=== PATIENT | male | born 1940 | race Caucasian/White ===

== ENCOUNTER → 2024-04-01 | Outpatient (CLI) | payer MEDICARE, SELFPAY ==
[2024-04-01 11:04] LABS: Absolute Lymphocyte Count 1.03 X10^3/uL (0.83-4.51); Absolute Neutrophil Count 5.1 X10^3/uL (2.0-7.7); Basophil# 0.02 X10^3/uL; Basophil% 0.3 % (0-1); Eosinophil# 0.06 X10^3/uL; Eosinophils% 0.9 % (0-5); Hematocrit 34.9 % (40-54); Hemoglobin 11.4 g/dL (13.0-16.5); Lymphocyte # 1.03 X10^3/ul (0.83-4.51); Lymphocyte % 15.1 % (19-41); Mean Corp Hgb Conc 32.7 g/dL (32-36); Mean Corpuscular Hgb 29.1 pg (27.0-32.0); Mean Platelet Vol. 9.9 fl (6.2-12.0); Monocyte# 0.63 X10^3/uL; Monocyte% 9.2 % (0-10); NRBC Flagged by Analyzer 0 % (0-5); Neutrophil # 5.06 X10^3/uL (2.7-7.7); Neutrophil % 74.1 % (47-70); Platelet Count 189 K/mm3 (150-450); RBC Distribution Width CV 19.7 % (11.6-14.6); RBC Distribution Width SD 64.2 fl (35.1-43.9); Red Blood Count 3.92 M/mm3 (4.6-6.2); White Blood Count 6.8 K/mm3 (4.4-11.0)
== END | disposition home or self-care (01) ==
PROVIDERS: PCP Student in an Organized Health Care Education/Training Program; Referring Provider Student in an Organized Health Care Education/Training Program; Visit Provider Student in an Organized Health Care Education/Training Program
DX: D64.9 Anemia, unspecified (principal); K92.1 Melena
CPT/HCPCS: 36415; 85025

== ENCOUNTER 2024-06-03 13:03 | Day surgery (SDC) | payer MEDICARE, SELFPAY ==
--- NOTE | 2024-05-31 16:15 | PAT.ANESEVAL ---
Pre-Assessment Diagnosis/Proposed Procedure Planned Operative Procedure(s): CSCOPE/EGD Anesthesia History Anesthesia History - mosaic floor layer: Anesthesia History - mosaic floor layer Hx Hospitalization Yes 05/31/24 14:10 Any Problems With Anesthesia No 05/31/24 14:10 Cholinesterase deficiency No 05/31/24 14:10 You/Your Family Experience No 05/31/24 14:10 fever (hyperthermia) with Relationship Recent Exposure to Contagious Disease Does patient have nerve No 05/31/24 14:10 stimulator Patient instructed to have device shut off --Does patient have Pacemaker or ICD? When Was Last Pacemaker Check QUESTION #4 FULL TEXT: You/Your Family Experience fever (hyperthermia) with Anesthesia Last Oral Intake Last Oral intake: Last Oral Intake NPO since Meds taken in AM with sips of water? Meds patient instructed to take am of surgery PONV PONV - mosaic floor layer: PONV - mosaic floor layer Female No 05/31/24 14:10 HX of Motion Sickness No 05/31/24 14:10 HX of N/V After Surgery No 05/31/24 14:10 Non-Smoker No 05/31/24 14:10 Duration of Surgery greater No 05/31/24 14:10 than 60 minutes Number of Risk Factors PONV Score Respiratory Assessment Respiratory Assessment - mosaic floor layer: Respiratory Tract Infection Hx - mosaic floor layer Hx Respiratory Tract Infection No 05/31/24 14:10 STOP Sleep Apnea STOP Sleep Apnea - mosaic floor layer: STOP Sleep Apnea - mosaic floor layer Hx Hypertension Yes: CONTROLLED WITH MED 05/31/24 14:10 Hx Sleep Apnea No 05/31/24 14:10 CPAP BIPAP Do you snore loudly (louder No 05/31/24 14:10 than talking or can be heard Do you often feel tired/ No 05/31/24 14:10 fatigued/ sleepy during daytime? Has anyone observed you stop No 05/31/24 14:10 breathing during sleep? STOP Results Negative 05/31/24 14:10 QUESTION #5 FULL TEXT : Do you snore loudly (louder than talking or can be heard through closed doors)? 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 Specify any problems Hx of Preganancy in last 3 N/A 05/31/24 14:10 Months Nurse Filling Out Transfusion DSCHRIBER 05/31/24 14:10 & Questions: Date: 05/31/24 05/31/24 14:10 Time: 14:11 05/31/24 14:10 Patient unable to answer at this time (ie. confused, unrespo /Reproduction History /Reproductive History - mosaic floor layer: /Reproductive Hx- mosaic floor layer Hx Now No 05/31/24 14:10 Gestational Age (in weeks): EDC: Hx Hx Para Hx Section SAB No 05/31/24 14:10 PFSH Medical History (Updated 05/31/24 @ 14:19 by Regina Valdovinos) Loss of hearing Wears glasses Wears dentures Cancer Forgetfulness Alcohol use Ambulates with cane Bladder disease Anemia High cholesterol Back pain COPD (chronic obstructive pulmonary disease) Shortness of breath on exertion Smoker History of stress test History of echocardiogram Cardiology follow-up encounter Hypertension History of atrial fibrillation Home Medications ?Medication ?Instructions ?Recorded ?Last Taken ?Type apixaban 5 mg tablet (Eliquis) 5 mg PO BID 04/01/24 05/31/24 History cholecalciferol (vitamin D3) 125 125 mcg PO QDAY 04/01/24 Unknown History mcg (5,000 unit) capsule cyanocobalamin (vitamin B-12) 1,000 mcg PO QDAY 04/01/24 Unknown History 1,000 mcg capsule ferrous sulfate 137 mg (45 mg 137 mg PO QDAY 04/01/24 05/30/24 History iron) tablet,extended release metoprolol tartrate 25 mg tablet 25 mg PO QDAY 04/01/24 Unknown History simvastatin 20 mg tablet 20 mg PO QHS 04/01/24 Unknown History tamsulosin 0.4 mg capsule 0.4 mg PO QHS 04/01/24 Unknown History albuterol sulfate 90 mcg/actuation 1 inh inhalation Q4H PRN shortness 05/31/24 Unknown History aerosol inhaler of breath or wheezing amiodarone 200 mg tablet 200 mg PO DAILY 05/31/24 Unknown History fluticasone propionate 50 1 spray intranasal DAILY PRN nasal 05/31/24 Unknown History mcg/actuation nasal congestion spray,suspension Allergy/AdvReac Type Severity Reaction Status Date / Time No Known Allergies Allergy Verified 05/31/24 14:06 Surgical History (Updated 05/31/24 @ 14:19 by Regina Valdovinos) History of transurethral resection of bladder tumor (TURBT) Hx of colonoscopy Hx of melanoma excision Hx of repair of left rotator cuff Social History Smoking Status: Current every day smoker tobacco type: cigarettes Audit: Pertinent Findings Pertinent Findings EKG Perinent findings: May 14, 2023. Sinus bradycardia 53 bpm. Positive PSVC's Stress test pertinent findings: October 23, 2020. Negative for ischemia. Negative for infarct. Ejection fraction 53%. Echo (EF%) pertinent findings: May 16, 2022. Ejection fraction 55%. Right ventricular systolic pressure is 49 mmHg consistent with mild pulmonary hypertension. Aortic valve was not seen. Compared with echo of February 2022 the left ventricular function has improved. Consult pertinent findings: May 14, 2023. Dr. Giles. 1. Atrial tachycardia-EKG today with sinus at 53 bpm. 2. Hypertension-reasonable blood pressure today. Patient states lower at home he will monitor and report back. 3. History of benign PVCs-no clinical significance. 4. Mild COPD-no wheezing. He has chronic minimal dyspnea. Recommendation Anesthesia Recommendation Anesthesia recommendation: OPTIMIZED for anesthesia
[2024-06-03] VITALS (7 sets, daily range): BP systolic 101–133; BP diastolic 64–71; PULSE 63–70; RESP 16–18; TEMP 36.3–36.9; O2SAT 98–100; BMI 24.2
--- NOTE | 2024-06-03 13:10 | PRE.ANES_ITS ---
ASA Classification* ASA Classification ASA Classification: 3 Assessment & Plan Anesthesia* Anesthesia Assessment Anesthesia Assessment: Discussed sedation and/or anesthesia options, risks, benefits, and alternatives with patient/parents/legal guardian/POA. Questions invited. The patient/parents/legal guardian/POA seems to understand and agrees to proceed with anesthesia plan. Reviewed the physical assessment, medical history, allergy history and patient home medications list prior to surgery/procedure/anesthetic and documented any changes. Performed airway and anesthesia risk assessments. 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 When Was Last Pacemaker Check QUESTION #4 FULL TEXT: You/Your Family Experience fever (hyperthermia) with Anesthesia Last Oral Intake Last Oral intake: Last Oral Intake NPO since Meds taken in AM with sips of water? 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 Female No 05/31/24 14:10 HX of Motion Sickness No 05/31/24 14:10 HX of N/V After Surgery No 05/31/24 14:10 Non-Smoker No 05/31/24 14:10 Duration of Surgery greater No 05/31/24 14:10 than 60 minutes Number of Risk Factors PONV Score Respiratory Assessment Respiratory Assessment - dress shoe inspector: Respiratory Tract Infection Hx - dress shoe inspector Hx Respiratory Tract Infection No 05/31/24 14:10 STOP Sleep Apnea STOP Sleep Apnea - dress shoe inspector: STOP Sleep Apnea - dress shoe inspector Hx Hypertension Yes: CONTROLLED WITH MED 05/31/24 14:10 Hx Sleep Apnea No 05/31/24 14:10 CPAP BIPAP Do you snore loudly (louder No 05/31/24 14:10 than talking or can be heard Do you often feel tired/ No 05/31/24 14:10 fatigued/ sleepy during daytime? Has anyone observed you stop No 05/31/24 14:10 breathing during sleep? STOP Results Negative 05/31/24 14:10 QUESTION #5 FULL TEXT : Do you snore loudly (louder than talking or can be heard through closed doors)? 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 Specify any problems Hx of Preganancy in last 3 N/A 05/31/24 14:10 Months Nurse Filling Out Transfusion DSCHRIBER 05/31/24 14:10 & Questions: Date: 05/31/24 05/31/24 14:10 Time: 14:11 05/31/24 14:10 Patient unable to answer at this time (ie. confused, unrespo /Reproduction History /Reproductive History - dress shoe inspector: /Reproductive Hx- dress shoe inspector Hx Now No 05/31/24 14:10 Gestational Age (in weeks): EDC: Hx Hx Para Hx Section SAB No 05/31/24 14:10 PFSH Medical History Loss of hearing Wears glasses Wears dentures Cancer Forgetfulness Alcohol use Ambulates with cane Bladder disease Anemia High cholesterol Back pain COPD (chronic obstructive pulmonary disease) Shortness of breath on exertion Smoker History of stress test History of echocardiogram Cardiology follow-up encounter Hypertension History of atrial fibrillation Home Medications ?Medication ?Instructions ?Recorded ?Last Taken ?Type apixaban 5 mg tablet (Eliquis) 5 mg PO BID 04/01/24 History cholecalciferol (vitamin D3) 125 125 mcg PO QDAY 04/01 Unknown History mcg (5,000 unit) capsule cyanocobalamin (vitamin B-12) 1,000 mcg PO QDAY Unknown History 1,000 mcg capsule ferrous sulfate 137 mg (45 mg 137 mg PO QDAY 04/01/24 05/30/24 History iron) tablet,extended release metoprolol tartrate 25 mg tablet 25 mg PO QDAY 5 Unknown History simvastatin 20 mg tablet 20 mg PO QHS 04/01/24 Unknow n History tamsulosin 0.4 mg capsule 0.4 mg PO QHS 04/01/24 Unkno wn History albuterol sulfate 90 mcg/actuation 1 inh inhalation Q4 H PRN shortness 05/31/24 Unknown History aerosol inhaler of breath or wheezing amiodarone 200 mg tablet 200 mg PO DAILY 05/31/24 Unk nown History fluticasone propionate 50 1 spray intranasal DAILY PRN nasal 05/31/24 Unknown History mcg/actuation nasal congestion spray,suspension Allergy/AdvReac Type Severity Reaction Status Date / Time No Known Allergies Allergy Verified 05/31/24 14:06 Surgical History History of transurethral resection of bladder tumor (TURBT) Hx of colonoscopy Hx of melanoma excision Hx of repair of left rotator cuff Social History Smoking Status: Current every day smoker tobacco type: cigarettes Review of Systems (Anesthesia) ROS Narrative System reviewed and no additional complaints, except as documented.
--- NOTE | 2024-06-03 14:14 | PCM.HP.STD ---
HPI - General General Date of Admission: 06/03/24 Date of Service: 06/03/24 Chief Complaint: Anemia HPI Narrative SELVIN CANO, is a 83 M who presents for the evaluation of anemia Pt has had anemia since December 2023 of unknown etiology. He has seen hematology who ruled out a bone marrow issue or cancer. His hemoglobin has been as low as 8 with last one in 2023 being 12.8. He is currently on iron infusions. He endorses solid black stools starting before he was on iron. He is fatigued and weak. His last colonoscopy was many years ago and he has never had an EGD. He has a bm every other day. He denies abd pain, n/v, diarrhea or heartburn. [facility] Medical History Loss of hearing Wears glasses Wears dentures Cancer Forgetfulness Alcohol use Ambulates with cane Bladder disease Anemia High cholesterol Back pain COPD (chronic obstructive pulmonary disease) Shortness of breath on exertion Smoker History of stress test History of echocardiogram Cardiology follow-up encounter Hypertension History of atrial fibrillation Home Medications ?Medication ?Instructions ?Recorded ?Last Taken ?Type apixaban 5 mg tablet (Eliquis) 5 mg PO BID 04/01/24 05/31/24 History cholecalciferol (vitamin D3) 125 125 mcg PO QDAY 04/01/24 05/31/24 History mcg (5,000 unit) capsule cyanocobalamin (vitamin B-12) 1,000 mcg PO QDAY 04/01/24 05/31/24 History 1,000 mcg capsule ferrous sulfate 137 mg (45 mg 137 mg PO QDAY 04/01/24 05/30/24 History iron) tablet,extended release metoprolol tartrate 25 mg tablet 25 mg PO QDAY 04/01/24 06/03/24 History simvastatin 20 mg tablet 20 mg PO QHS 04/01/24 06/02/24 History tamsulosin 0.4 mg capsule 0.4 mg PO QHS 04/01/24 06/02/24 History albuterol sulfate 90 mcg/actuation 1 inh inhalation Q4H PRN shortness 05/31/24 06/03/24 History aerosol inhaler of breath or wheezing amiodarone 200 mg tablet 200 mg PO DAILY 05/31/24 06/03/24 History fluticasone propionate 50 1 spray intranasal DAILY PRN nasal 05/31/24 06/02/24 History mcg/actuation nasal congestion spray,suspension Allergy/AdvReac Type Severity Reaction Status Date / Time No Known Allergies Allergy Verified 06/03/24 13:37 Surgical History History of transurethral resection of bladder tumor (TURBT) Hx of colonoscopy Hx of melanoma excision Hx of repair of left rotator cuff Social History Smoking Status: Current every day smoker tobacco type: cigarettes ROS Constitutional Constitutional: Denies fatigue, fever(s), poor appetite, weight gain or weight loss Gastrointestinal Gastrointestinal: Denies belching, bloating, change in bowel habits, change in stool character, chewing difficulty, coffee ground emesis, constipation, cramping, diarrhea, dyspepsia, dysphagia, early satiety, excessive flatus, fecal incontinence, heartburn, hematemesis, hematochezia, hemorrhoids, loose stools, melena, nausea, odynophagia, rectal bleeding, tenesmus, vomiting or weight changes Vital Signs Vital Signs Vital Signs: 06/03/24 13:40 06/03/24 13:40 Temperature 97.5 F L Temperature Source Temporal Pulse Rate 69 Respiratory Rate 18 Respiratory Pattern Normal Blood Pressure 133/64 H Blood Pressure Mean 87 Blood Pressure Source Monitor Blood Pressure Position Semi-Fowlers Blood Pressure Location Right Arm Pulse Ox 100 Oxygen Delivery Method Room Air Weight Weight: 173 lb 11.588 oz Body Mass Index (BMI) 24.2 Physical Exam Const alert, oriented x3, no apparent distress and healthy appearing General Appearance: cooperative GI normal to inspection, nondistended, normoactive bowel sounds, soft to palpation, non-tender and non-distended Percussion: normal to percussion Rectal Exam: deferred Assessment & Plan Assessment/Plan (1) Black stools: (2) Anemia: PLAN: Assessment and Plan Assessment and Plan (1) Anemia: Status: Acute Plan: This is an 83 yo male pt here today fro evaluation of anemia and black stools. This has been going on since 2023 and he was started on iron infusions. He has been seen by hematology who ruled out bone marrow etiology. He will undergo both upper and lower endoscopy to evacuate his GI tract for bleeding. -EGD and colonoscopy -CBC -Continue iron infusions -Consider capsule endoscopy (2) Black stools: Status: Acute Orders: Orders
--- NOTE | 2024-06-03 15:01 | OP.EGD_ITS ---
Patient Name: Wisam Pope Procedure Date: 06/03/2024 2:17 PM Date of : 1940 Age: 83 Procedure: Upper GI endoscopy Indications: Iron deficiency anemia Providers: Sánchez Hawthorne DO Referring MD: Annie Salas Do Medicines: Monitored Anesthesia Care Patient Profile: This is an 83 year old male. Refer to note in patient chart for documentation of history and physical. Patient has symptoms. Complications: No immediate complications. Procedure: Pre-Anesthesia Assessment: - Prior to the procedure, a History and Physical was performed, and patient medications and allergies were reviewed. The patient is competent. The risks and benefits of the procedure and the sedation options and risks were discussed with the patient. All questions were answered and informed consent was obtained. Patient identification and proposed procedure were verified by the physician in the pre-procedure area. Mental Status Examination: alert and oriented. Airway Examination: normal oropharyngeal airway and neck mobility. Respiratory Examination: clear to auscultation. CV Examination: normal. ASA Grade Assessment: III - A patient with severe systemic disease. After reviewing the risks and benefits, the patient was deemed in satisfactory condition to undergo the procedure. The anesthesia plan was to use monitored anesthesia care (MAC). Immediately prior to administration of medications, the patient was re-assessed for adequacy to receive sedatives. The heart rate, respiratory rate, oxygen saturations, blood pressure, adequacy of pulmonary ventilation, and response to care were monitored throughout the procedure. The physical status of the patient was re-assessed after the procedure. After obtaining informed consent, the endoscope was passed under direct vision. Throughout the procedure, the patient's blood pressure, pulse, and oxygen saturations were monitored continuously. The pediatric colonoscope was introduced through the mouth, and advanced to the fourth part of the duodenum. Small bowel enteroscopy was deemed necessary. The upper GI endoscopy was accomplished without difficulty. The patient tolerated the procedure well. Scope In: 2:36:00 PM Scope Out: 2:40:32 PM Total Procedure Duration Time 0 hours 4 minutes 32 seconds Findings: The examined esophagus was normal. A small hiatal hernia was present. The exam of the stomach was otherwise normal. Two 5 mm angiodysplastic lesions with bleeding were found in the third portion of the duodenum. Coagulation for hemostasis using heater probe was successful. Estimated blood loss was minimal. Impression: - Normal esophagus. - Small hiatal hernia. - Two bleeding angiodysplastic lesions in the duodenum. Treated with a heater probe. - No specimens collected. Recommendation: - Discharge patient to home. - Resume previous diet. - Continue present medications. Procedure Code(s): --- Professional --- 47273, Small intestinal endoscopy, enteroscopy beyond second portion of duodenum, not including ileum; with control of bleeding (eg, injection, bipolar cautery, unipolar cautery, laser, heater probe, stapler, plasma procurement assistant) CPT copyright 2021 [employer]. All rights reserved. The codes documented in this report are preliminary and upon driver guide review may be revised to meet current compliance requirements. Sánchez Hawthorne DO 06/03/2024 3:01:01 PM This report has been signed electronically. Number of Addenda: 0 Note Initiated On: 06/03/2024 2:17 PM
--- NOTE | 2024-06-03 15:01 | OP.CCLET_ITS ---
06/03/2024 Annie Salas Do Re : Upper GI endoscopy procedure for Wisam Pope Dear Dr. Salas This procedure was performed on Monday, June 03, 2024. My impressions and recommendations are as follows: Impressions : - Normal esophagus. - Small hiatal hernia. - Two bleeding angiodysplastic lesions in the duodenum. Treated with a heater probe. - No specimens collected. Recommendations : - Discharge patient to home. - Resume previous diet. - Continue present medications. My findings are described in the full procedure note, which is enclosed. If I can be of further assistance, please feel free to contact me at . Sincerely, Sánchez Hawthorne, 06/03/2024 3:01:01 PM This report has been signed electronically.
--- NOTE | 2024-06-03 15:03 | OP.CCLET_ITS ---
06/03/2024 Annie Salas Do Re : Colonoscopy procedure for Wisam Pope Dear Dr. Salas This procedure was performed on Monday, June 03, 2024. My impressions and recommendations are as follows: Impressions : - Diverticulosis in the recto-sigmoid colon, in the sigmoid colon and in the descending colon. - The examination was otherwise normal on direct and retroflexion views. - No specimens collected. Recommendations : - Discharge patient to home. - Resume previous diet. - Continue present medications. - No repeat colonoscopy due to age. My findings are described in the full procedure note, which is enclosed. If I can be of further assistance, please feel free to contact me at . Sincerely, Sánchez Hawthorne, 06/03/2024 3:02:41 PM This report has been signed electronically.
--- NOTE | 2024-06-03 15:03 | OP.COLON_ITS ---
Patient Name: Wisam Pope Procedure Date: 06/03/2024 2:41 PM Date of : 1940 Age: 83 Procedure: Colonoscopy Indications: Iron deficiency anemia Providers: Sánchez Hawthorne DO Referring MD: Annie Salas Do Medicines: Monitored Anesthesia Care Patient Profile: This is an 83 year old male. Refer to note in patient chart for documentation of history and physical. Patient has symptoms. Last Colonoscopy: several years ago. Complications: No immediate complications. Procedure: Pre-Anesthesia Assessment: - Prior to the procedure, a History and Physical was performed, and patient medications and allergies were reviewed. The patient is competent. The risks and benefits of the procedure and the sedation options and risks were discussed with the patient. All questions were answered and informed consent was obtained. Patient identification and proposed procedure were verified by the physician in the pre-procedure area. Mental Status Examination: alert and oriented. Airway Examination: normal oropharyngeal airway and neck mobility. Respiratory Examination: clear to auscultation. CV Examination: normal. ASA Grade Assessment: III - A patient with severe systemic disease. After reviewing the risks and benefits, the patient was deemed in satisfactory condition to undergo the procedure. The anesthesia plan was to use monitored anesthesia care (MAC). Immediately prior to administration of medications, the patient was re-assessed for adequacy to receive sedatives. The heart rate, respiratory rate, oxygen saturations, blood pressure, adequacy of pulmonary ventilation, and response to care were monitored throughout the procedure. The physical status of the patient was re-assessed after the procedure. After I obtained informed consent, the scope was passed under direct vision. Throughout the procedure, the patient's blood pressure, pulse, and oxygen saturations were monitored continuously. The pediatric colonoscope was introduced through the anus and advanced to the cecum, identified by appendiceal orifice and ileocecal valve. The colonoscopy was performed without difficulty. The patient tolerated the procedure well. The quality of the bowel preparation was adequate. The ileocecal valve, appendiceal orifice, and rectum were photographed. Scope In: 2:43:49 PM Scope Withdrawal Time 0 hours 5 minutes 16 seconds Scope Out: 2:54:10 PM Total Procedure Duration Time 0 hours 10 minutes 21 seconds Findings: The perianal and digital rectal examinations were normal. A few small and large-mouthed diverticula were found in the recto-sigmoid colon, sigmoid colon and descending colon. The exam was otherwise without abnormality on direct and retroflexion views. Impression: - Diverticulosis in the recto-sigmoid colon, in the sigmoid colon and in the descending colon. - The examination was otherwise normal on direct and retroflexion views. - No specimens collected. Recommendation: - Discharge patient to home. - Resume previous diet. - Continue present medications. - No repeat colonoscopy due to age. Procedure Code(s): --- Professional --- 59605, Colonoscopy, flexible; diagnostic, including collection of specimen(s) by brushing or washing, when performed (separate procedure) CPT copyright 2021 [employer]. All rights reserved. The codes documented in this report are preliminary and upon pest control supervisor review may be revised to meet current compliance requirements. Sánchez Hawthorne DO 06/03/2024 3:02:41 PM This report has been signed electronically. Number of Addenda: 0 Note Initiated On: 06/03/2024 2:41 PM
--- NOTE | 2024-06-03 15:03 | PCM.POST.ANE ---
Anesthesia: Postop Eval I Current Vital Signs Temperature: 97.4 F Pulse Rate: 70 Blood Pressure: 105/68 Respiratory Rate: 16 Pulse Ox: 99 Oxygen Delivery Method: Room Air Assessment Airway patent: Yes Spontaneous unlabored respirations: Yes Mental status: Awake and Calm nausea: No Vomiting: No Anesthesia Complication: No Fluid Hydration Crystalloid volume administer (ml): 60 Total IV fluid infused: 60 Progress Note Anesthesia document: Postop Eval 1 completed: Yes
--- NOTE | 2024-06-03 15:40 | PCM.POSTANE2 ---
Anesthesia Postop Eval I Sum Postop Eval Completion status Anesthesia document: Postop Eval 1 completed: Yes Anesthesia Postop Eval I Summary Anesthesia Postop Eval I Summary: Anesthesia Postop Eval I: Assessment Summary Airway patent Yes 06/03/24 15:04 [email or web address] Spontaneous unlabored Yes 06/03/24 15:04 [email or web address] respirations Mental status Awake,Calm 06/03/24 15:04 [email or web address] nausea No 06/03/24 15:04 [email or web address] Vomiting No 06/03/24 15:04 [email or web address] Anesthesia Postop Eval I: Fluid Summary Crystalloid volume administer 60 06/03/24 15:04 [email or web address] (ml) Colloids volume administered ( ml) Blood Product volume administered (ml) Total IV fluid infused 60 06/03/24 15:04 [email or web address] Anesthesia Postop Eval I: Summary Notes Anesthesia Complication No 06/03/24 15:04 [email or web address] Anesthesia Complication Comment: Post-operative progress note Anesthesia: Postop Eval II Evaluation Mental status: Awake Pain Level: 0 nausea: No Vomiting: No
== END 2024-06-03 15:38 | disposition home or self-care (01) ==
LOC: EN 13:07 → AC 13:10
PROVIDERS: PCP Student in an Organized Health Care Education/Training Program; Referring Provider Student in an Organized Health Care Education/Training Program; Visit Provider Internal Medicine Gastroenterology
PROC: 0DJD8ZZ Inspection of Lower Intestinal Tract, Via Natural or Artificial Opening Endoscopic (ICD-10-PCS; CPT 45378; principal; 2024-06-03 13:55)
DX: K31.811 Angiodysplasia of stomach and duodenum with bleeding (principal); J44.9 Chronic obstructive pulmonary disease, unspecified; K44.9 Diaphragmatic hernia without obstruction or gangrene; D50.9 Iron deficiency anemia, unspecified; K57.31 Diverticulosis of large intestine without perforation or abscess with bleeding; I10 Essential (primary) hypertension; E78.00 Pure hypercholesterolemia, unspecified; F17.210 Nicotine dependence, cigarettes, uncomplicated; Z79.899 Other long term (current) drug therapy
CPT/HCPCS: 44366; 45378; C1889; A4216; J2405

== ENCOUNTER → 2025-02-21 | Outpatient (CLI) | payer MEDICARE, SELFPAY ==
[2025-02-21 16:58] LABS: Squamous Epithelial Cells - UA 0 SEEN /hpf (0-5)
[2025-02-21 17:49] LABS: Color, Urine Red (Yellow); Glucose, Dipstick Normal (Normal); Ketone-Dipstick 5 mg/dl (Negative); Leukocyte Esterase-Dipstick Negative /ul (Negative); Nitrite-Dipstick Negative (Negative); Occult Blood-Urine 250 /ul (Negative); Protein-Dipstick 500 mg/dl (Negative); Specific Gravity, Urine 1.020 (1.002-1.030); Urine Bilirubin Dipstick Negative (Negative)
[2025-02-21 18:23] LABS: Mucous, Urine 1+ /hpf (<or=2+); Red Blood Cells-Urine > 100 SEEN /hpf (0-5)
== END | disposition home or self-care (01) ==
LOC: LABSPEC 16:57
PROVIDERS: PCP Student in an Organized Health Care Education/Training Program; Visit Provider Physician Assistant
DX: R30.0 Dysuria (principal)
CPT/HCPCS: 81001; 87086